=== PATIENT | male | born 1975 | race American Indian/Alaskan Native ===

== ENCOUNTER 2022-05-21 00:05 | Inpatient (IN) | payer MEDICAID ==
[2022-05-21 00:43] LABS: Basophils # (Auto) 0.1 K/mm3 (0.0-0.1); Eosinophils # (Auto) 0.3 K/mm3 (0.0-0.4); Hematocrit 37.1 % (35.5-45.6); Hemoglobin 12.4 gm/dl (11.8-15.2); Lymphocytes # (Auto) 2.5 K/mm3 (1.2-5.4); Lymphocytes % (Auto) 28.8 % (13.4-35.0); Mean Corpuscular HGB Conc 34 % (32-34); Mean Corpuscular Volume 72 fl (84-94); Monocytes % (Auto) 11.1 % (0.0-7.3); Platelet Count 212 K/mm3 (140-440); Red Blood Count 5.13 M/mm3 (3.65-5.03)
--- NOTE | 2022-05-21 00:50 | XRay Report ---
CHEST 2 VIEWS INDICATION: Chest Pain. COMPARISON: None. FINDINGS: Support devices: Chest port in satisfactory position. Heart: Within normal limits. Lungs/Pleura: No acute air space or interstitial disease. No significant pleural effusion. IMPRESSION: No acute findings. Signer Name: Wallace Gomez MD Signed: 05/21/2022 12:45 AM Workstation Name: [id number]
[2022-05-21 01:01] LABS: BUN/Creatinine Ratio 17; Blood Urea Nitrogen 22 mg/dL (9-20); Hemolysis Index 7
--- NOTE | 2022-05-21 07:18 | Emergency Department Report ---
HPI - General Chief Complaint: Chest Pain Time Seen by Provider: 05/21/22 07:03 - [facility] HPI: Room 5 Patient is a 46-year-old male present with chief complaint of chest pain. Patient states last night at 23: 00 he developed substernal chest pain described as a tightness that lasted approximate 10 minutes. The patient states by the time he left his house pain has subsided and has not returned. Patient states he had some shortness of breath with the pain but never had nausea/vomiting or diaphoresis. Patient denies pleurisy or cough. 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 Gout - Surgical History Past Surgical History?: Yes Additional Surgical History: LYMPH NODE REMOVAL - Family History Family history: no significant - Social History Smoking Status: Current Every Day Smoker (1/2 pack/day) Substance Use Type: None (Denies illicit drug use), Alcohol (Occasional) ED Review of Systems ROS: Stated complaint: CHEST PAIN Other details as noted in HPI Constitutional: denies: diaphoresis Eyes: denies: eye pain ENT: denies: throat pain Respiratory: shortness of breath Cardiovascular: chest pain Endocrine: no symptoms reported Gastrointestinal: denies: nausea, vomiting Genitourinary: denies: dysuria Musculoskeletal: denies: back pain Neurological: denies: headache Physical Exam - Physical Exam Vital Signs: Vital Signs 05/21/22 00:09 Temperature 98.3 F Pulse Rate 82 Respiratory 14 Rate Blood Pressure 179/114 Blood Pressure 179/114 [Right] O2 Sat by Pulse 95 Oximetry Physical Exam: GENERAL: The patient is well-developed well-nourished male lying on stretcher not appearing to be in acute distress. [] HEENT: Normocephalic. Atraumatic. Extraocular motions are intact. Patient has moist mucous membranes. NECK: Supple. Trachea midline CHEST/LUNGS: Clear to auscultation. There is no respiratory distress noted. HEART/CARDIOVASCULAR: Regular. There is no tachycardia. There is no gallop rub or murmur. ABDOMEN: Abdomen is soft, nontender. Patient has normal bowel sounds. There is no abdominal distention. SKIN: There is no rash. There is 1+ bilateral lower extremity pitting edema. There is no diaphoresis. NEURO: The patient is awake, alert, and oriented. The patient is cooperative. The patient has no focal neurologic deficits. The patient has normal speech. GCS 15 MUSCULOSKELETAL:There is no evidence of acute injury. ED Course Vital Signs 05/21/22 00:09 Temperature 98.3 F Pulse Rate 82 Respiratory 14 Rate Blood Pressure 179/114 Blood Pressure 179/114 [Right] O2 Sat by Pulse 95 Oximetry ED Medical Decision Making - Lab Data Result diagrams: 05/21/22 00:31 05/21/22 00:31 Laboratory Tests 05/21/22 05/21/22 05/21/22 00:31 00:31 07:18 WBC 8.7 RBC 5.13 H Hgb 12.4 Hct 37.1 MCV 72 L MCH 24 L MCHC 34 RDW 20.0 H Plt Count 212 Lymph % (Auto) 28.8 Emanuel % (Auto) 11.1 H Eos % (Auto) 4.0 Baso % (Auto) 1.0 Lymph # (Auto) 2.5 Emanuel # (Auto) 1.0 H Eos # (Auto) 0.3 Baso # (Auto) 0.1 Seg Neutrophils % 55.1 Seg Neutrophils # 4.8 PT INR D-Dimer 693.39 H Sodium 142 Potassium 3.8 Chloride 106.3 Carbon Dioxide 26 Anion Gap 14 BUN 22 H Creatinine 1.3 Estimated GFR 59 BUN/Creatinine Ratio 17 Glucose 103 H Calcium 9.0 Troponin T < 0.010 NT-Pro-B Natriuret Pep 05/21/22 05/21/22 05/21/22 07:18 07:18 13:16 WBC RBC Hgb Hct MCV MCH MCHC RDW Plt Count Lymph % (Auto) Emanuel % (Auto) Eos % (Auto) Baso % (Auto) Lymph # (Auto) Emanuel # (Auto) Eos # (Auto) Baso # (Auto) Seg Neutrophils % Seg Neutrophils # PT 14.6 INR 1.03 D-Dimer Sodium Potassium Chloride Carbon Dioxide Anion Gap BUN Creatinine Estimated GFR BUN/Creatinine Ratio Glucose Calcium Troponin T < 0.010 NT-Pro-B Natriuret Pep 2980 H - EKG Data -: EKG Interpreted by [place] EKG shows normal: sinus rhythm Rate: normal - EKG Data When compared to previous EKG there are: previous EKG unavailable Interpretation: nonspecific ST-T wave dennis (T wave inversions leads V2, V3) - Radiology Data Radiology results: report reviewed (Chest x-ray, CT chest), image reviewed (Chest x-ray, CT chest) interpreted by me: Chest x-ray-no definite focal infiltrates, no pneumothorax [address] [address] XRay Report Signed Patient: JAKI KIRBY MR#: [id number] 3 : 1975 Acct:[id number] Age/Sex: 46 / M ADM Date: 05/21/22 Loc: ED Attending Dr: Ordering Physician: JYOTI RAO MD Date of Service: 05/21/22 Procedure(s): XR chest routine 2V Accession Number(s): [id number] cc: JYOTI RAO MD Fluoro Time In Minutes: CHEST 2 VIEWS INDICATION: Chest Pain. COMPARISON: None. FINDINGS: Support devices: Chest port in satisfactory position. Heart: Within normal limits. Lungs/Pleura: No acute air space or interstitial disease. No significant pleural effusion. IMPRESSION: No acute findings. Signer Name: Wallace Gomez MD Signed: 05/21/2022 12:45 AM Workstation Name: [id number] Transcribed By: ES Dictated By: Wallace Gomez MD Electronically Authenticated By: Wallace Gomez MD Signed Date/Time: 05/21/2244 DD/ TD/TT: [address] [address] Cat Scan Report Signed Patient: JAKI KIRBY MR#: [id number] 3 : 1975 Acct:[id number] Age/Sex: 46 / M ADM Date: 05/21/22 Loc: ED Attending Dr: Ordering Physician: YANELI FAN MD Date of Service: 05/21/22 Procedure(s): CT angio chest Accession Number(s): [id number] cc: YANELI FAN MD CTA CHEST WITH CONTRAST INDICATION / CLINICAL INFORMATION: Chest pain, elevated D-dimer. TECHNIQUE: Axial CT images were obtained through the chest after injection of IV contrast. 3 plane MIP and/or 3D reconstructions were produced. All CT scans at this location are performed using CT dose reduction for ALARA by means of automated exposure control. COMPARISON: None available. FINDINGS: PULMONARY ARTERIES: There are filling defects within the segmental and subse gmental branches of the right lower lobe, as well as the subsegmental branches of the left lower lobe. Filling defects are also noted in the subsegmental branches of the right upper and middle lobes. Main pulmonary artery is dilated measuring 3.7 cm. THORACIC AORTA: No significant abnormality. HEART: No significant abnormality. CORONARY ARTERY CALCIFICATION: None. MEDIASTINUM / NAREN: No significant abnormality. PLEURA: No pleural effusion. No pneumothorax. LUNGS: No acute air space or interstitial disease. ADDITIONAL FINDINGS: None. UPPER ABDOMEN: Cholelithiasis. SKELETAL STRUCTURES: Scattered degeneration. IMPRESSION: 1. Multiple segmental and subsegmental pulmonary emboli. Main pulmonary artery is dilated measuring 3.7 cm. 2. Otherwise no acute findings. CRITICAL RESULT Time of Discovery (CORE LAYING MACHINE OPERATOR/CDT): 12:10 PM Time of Communication (CORE LAYING MACHINE OPERATOR/CDT): 12:15 PM Licensed Practitioner Receiving Report: Dr. Fan Read-Back Performed: Yes. Signer Name: Dexter Wise DO Signed: 05/21/2022 1:15 PM Workstation Name: [id number] Transcribed By: NS Dictated By: DEXTER WISE DO Electronically Authenticated By: DEXTER WISE DO Signed Date/Time: 05/21/22 1315 DD/ 1309 TD/TT: - Differential Diagnosis ACS, PE, pericarditis, GERD Critical care attestation.: If time is entered above; I have spent that time in minutes in the direct care of this critically ill patient, excluding procedure time. ED Disposition Clinical Impression: Acute chest pain, Pulmonary emboli Disposition: ADMITTED INPATIENT Is pt being admited?: Yes Does the pt Need Aspirin: No Condition: Fair Instructions: Chest Pain (ED) Referrals: CARBUCCIA,PERLA, MD [Primary Care Provider] - 3-5 Days Time of Disposition: 13:27 (Care transferred to hospitalist (Dr. Alicea)) Heart Score - HEART Score History: Moderately suspicious EKG: Non-specific Age: 45-65 Risk factors: > 3 risk factors or hx of atherosclerotic disease Troponin: < normal limit HEART Score: 5 - EKG Read Time Time EKG Completed: 00:23 EKG Read Time: 00:26
[2022-05-21] MEDS ORDERED: HEPARIN 10,000 UNITS/10 ML VIAL IV ONE (13:17)
--- NOTE | 2022-05-21 13:19 | Cat Scan Report ---
CTA CHEST WITH CONTRAST INDICATION / CLINICAL INFORMATION: Chest pain, elevated D-dimer. TECHNIQUE: Axial CT images were obtained through the chest after injection of IV contrast. 3 plane DE P and/or 3D reconstructions were produced. All CT scans at this location are performed using CT dose reduction for ALARA by means of automated exposure control. COMPARISON: None available. FINDINGS: PULMONARY ARTERIES: There are filling defects within the segmental and subsegmental branches of the r ight lower lobe, as well as the subsegmental branches of the left lower lobe. Filling defects are als o noted in the subsegmental branches of the right upper and middle lobes. Main pulmonary artery is di lated measuring 3.7 cm. THORACIC AORTA: No significant abnormality. HEART: No significant abnormality. CORONARY ARTERY CALCIFICATION: None. MEDIASTINUM / NAREN: No significant abnormality. PLEURA: No pleural effusion. No pneumothorax. LUNGS: No acute air space or interstitial disease. ADDITIONAL FINDINGS: None. UPPER ABDOMEN: Cholelithiasis. SKELETAL STRUCTURES: Scattered degeneration. IMPRESSION: 1. Multiple segmental and subsegmental pulmonary emboli. Main pulmonary artery is dilated measuring 3 .7 cm. 2. Otherwise no acute findings. CRITICAL RESULT Time of Discovery (WARP KNITTING MACHINE OPERATOR/CDT): 12:10 PM Time of Communication (WARP KNITTING MACHINE OPERATOR/CDT): 12:15 PM Licensed Practitioner Receiving Report: Dr. Heaton Read-Back Performed: Yes. Signer Name: Dexter Gil DO Signed: 05/21/2022 1:15 PM Workstation Name: [id number]
[2022-05-21 13:25] LABS: INR 1.03 (0.87-1.13)
[2022-05-21] MEDS ORDERED: HEPARIN 10,000 UNITS/10 ML VIAL IV PRN (14:00)
[2022-05-21] MEDS ORDERED: HEPARIN/ 0.45% NACL DRIP 25,000 UNIT/500 ML BAG IV SCH (14:00)
--- NOTE | 2022-05-21 17:53 | History and Physical Report ---
History of Present Illness Date of examination: 05/21/22 Date of admission: 05/21/2022 Chief complaint: Chest pain and shortness of breath since last night History of present illness: 46-year-old -Beninese male with history of hypertension and pulmonary embolism diagnosed in around normal October 2021 on Coumadin comes in for shortness of breath and intermittent chest pain. The most prominent symptom is shortness of breath on exertion. Patient was on Coumadin which he has not been taking recently because of follow-up with primary care and insurance issues. No fever or chills. Shortness of breath on exertion. Chest pain intermittently but faint chest pain. No relation to exertion. More on deep inspiration. No diaphoresis no vomiting. During my exam his blood pressure was 220/110. Also complains of left great toe pain. - Past Medical History --Previous Medical History?: Yes --Hypertension: Yes --Deep Vein Thrombosis: Yes --Hx of Cancer: Yes (Lymphoma s/p bone marrow transplant) --Additional medical history: Obstructive sleep apnea on CPAP. Gout - Surgical History --Past Surgical History?: Yes --Additional Surgical History: LYMPH NODE REMOVAL - Family History --Family history: no significant - Social History Smoking Status: Current Every Day Smoker (1/2 pack/day) Substance Use Type: None (Denies illicit drug use), Alcohol (Occasional) Review of Systems ROS: Stated complaint: CHEST PAIN Other details as noted in HPI Constitutional: denies: diaphoresis Eyes: denies: eye pain ENT: denies: throat pain Respiratory: shortness of breath Cardiovascular: chest pain Endocrine: no symptoms reported Gastrointestinal: denies: nausea, vomiting Genitourinary: denies: dysuria Musculoskeletal: Left great toe pain Neurological: denies: headache Medications and Allergies Allergies Allergy/AdvReac Type Severity Reaction Status Date / Time No Known Allergies Allergy Unverified 05/21/22 00:18 Active Meds: Active Medications Heparin Sodium (Porcine) (Heparin 10,000 Units/10 Ml Vial) 5,000 unit IV Q6H PRN PRN Reason: Anti-Xa Assay < 0.1 units/ml Heparin Sodium/Sodium Chloride (Heparin/ 0.45% Nacl-25,000 Unit/500 Ml) 25,000 unit in 500 mls @ 30 mls/hr IV TITR DANIELLA; Protocol Exam - Constitutional Vitals: Temp Pulse Resp BP Pulse Ox 98.3 F 67 14 184/104 98 05/21/22 00:09 05/21/22 10:32 05/21/22 10:32 05/21/22 10:32 05/21/22 10:32 General appearance: Present: no acute distress, well-nourished - EENT Eyes: Present: PERRL ENT: hearing intact, clear oral mucosa - Neck Neck: Present: supple, normal ROM - Respiratory Respiratory effort: normal Respiratory: bilateral: CTA - Cardiovascular Heart rate: 78 Rhythm: regular Heart Sounds: Present: S1 & S2. Absent: rub, click - Extremities Extremities: pulses symmetrical, No edema Peripheral Pulses: within normal limits - Abdominal General gastrointestinal: Present: soft, non-tender, non-distended, normal bowel sounds Male genitourinary: Present: normal - Integumentary Integumentary: Present: clear, warm, dry - Musculoskeletal Musculoskeletal: gait normal, strength equal bilaterally - Psychiatric Psychiatric: appropriate mood/affect, intact judgment & insight - Neurologic Neurologic: CNII-XII intact, moves all extremities HEART Score - HEART Score History: Slightly suspicious EKG: Non-specific Age: 45-65 Risk factors: 1-2 risk factors Troponin: Troponin T < 0.010 ng/mL (0.00-0.029) 05/21/22 07:18 Troponin: < normal limit HEART Score: 3 - Critical Actions Critical Actions: 4-6 pts:12-16.6% risk of adverse cardiac event. Should be admitted Results - Labs CBC & Chem 7: 05/21/22 00:31 05/21/22 00:31 Labs: Laboratory Last Values WBC 8.7 K/mm3 (4.5-11.0) 05/21/22 00:31 RBC 5.13 M/mm3 (3.65-5.03) H 05/21/22 00:31 Hgb 12.4 gm/dl (11.8-15.2) 05/21/22 00:31 Hct 37.1 % (35.5-45.6) 05/21/22 00:31 MCV 72 fl (84-94) L 05/21/22 00:31 MCH 24 pg (28-32) L 05/21/22 00:31 MCHC 34 % (32-34) 05/21/22 00:31 RDW 20.0 % (13.2-15.2) H 05/21/22 00:31 Plt Count 212 K/mm3 (140-440) 05/21/22 00:31 Lymph % (Auto) 28.8 % (13.4-35.0) 05/21/22 00:31 Rapides % (Auto) 11.1 % (0.0-7.3) H 05/21/22 00:31 Eos % (Auto) 4.0 % (0.0-4.3) 05/21/22 00:31 Baso % (Auto) 1.0 % (0.0-1.8) 05/21/22 00:31 Lymph # (Auto) 2.5 K/mm3 (1.2-5.4) 05/21/22 00:31 [place]ides # (Auto) 1.0 K/mm3 (0.0-0.8) H 05/21/22 00:31 Eos # (Auto) 0.3 K/mm3 (0.0-0.4) 05/21/22 00:31 Baso # (Auto) 0.1 K/mm3 (0.0-0.1) 05/21/22 00:31 Seg Neutrophils % 55.1 % (40.0-70.0) 05/21/22 00:31 Seg Neutrophils # 4.8 K/mm3 (1.8-7.7) 05/21/22 00:31 PT 14.6 Sec. (12.2-14.9) 05/21/22 13:16 INR 1.03 (0.87-1.13) 05/21/22 13:16 APTT 32.0 Sec. (24.2-36.6) 05/21/22 13:16 D-Dimer 693.39 ng/mlDDU (0-234) H 05/21/22 07:18 Sodium 142 mmol/L (137-145) 05/21/22 00:31 Potassium 3.8 mmol/L (3.6-5.0) 05/21/22 00:31 Chloride 106.3 mmol/L (98-107) 05/21/22 00:31 Carbon Dioxide 26 mmol/L (22-30) 05/21/22 00:31 Anion Gap 14 mmol/L 05/21/22 00:31 BUN 22 mg/dL (9-20) H 05/21/22 00:31 Creatinine 1.3 mg/dL (0.8-1.3) 05/21/22 00:31 Estimated GFR 59 ml/min 05/21/22 00:31 BUN/Creatinine Ratio 17 % 05/21/22 00:31 Glucose 103 mg/dL (75-100) H 05/21/22 00:31 Calcium 9.0 mg/dL (8.4-10.2) 05/21/22 00:31 Troponin T < 0.010 ng/mL (0.00-0.029) 05/21/22 07:18 NT-Pro-B Natriuret Pep 2980 pg/mL (0-450) H 05/21/22 07:18 Cardiac Enzymes 05/21/22 Range/Units 07:18 Troponin T < 0.010 (0.00-0.029) ng/mL - Imaging and Cardiology EKG: report reviewed Chest x-ray: report reviewed CT scan - chest: report reviewed Imaging and Cardiology: Chest x-ray No acute findings Chest CTA Multiple segmental and subsegmental pulmonary emboli Multiple main pulmonary artery is dilated measuring 3.7 cm otherwise no acute findings Assessment and Plan Advance Directives: Yes (Full code) VTE prophylaxis?: Chemical Plan of care discussed with patient/family: Yes - Patient Problems (1) Acute pulmonary embolism Current Visit: Yes Status: Acute Qualifiers: Acute cor pulmonale presence: without acute cor pulmonale Plan to address problem: Patient started on IV heparin Protein S protein C levels ordered Antithrombin ordered Vascular surgery consult requested for possible EKOS Patient does not have acute cor pulmonale May not need EKOS Changed to Eliquis tomorrow (2) Acute chest pain Current Visit: Yes Status: Acute Plan to address problem: Possibly secondary to pulmonary infarct Serial troponins Stress test was not requested at this point (3) Hypertensive emergency Current Visit: Yes Status: Acute Plan to address problem: Carvedilol 25 twice daily, amlodipine 10 mg daily and valsartan 160 mg p.o. every 12 added IV hydralazine 10 mg every 3 as needed (4) Acute gout Current Visit: Yes Status: Acute Plan to address problem: Patient used to be on allopurinol. Stopped allopurinol Patient started on colchicine, indomethacin prednisone and allopurinol (5) EVELIN on CPAP Current Visit: Yes Status: Acute Plan to address problem: Respiratory assessment and CPAP machine if necessary (6) DVT prophylaxis Current Visit: Yes Status: Acute Plan to address problem: On heparin and GI prophylaxis (7) Advance care planning Current Visit: Yes Status: Acute Plan to address problem: Disease education conducted care plan discussed diagnosis discussed, prognosis discussed. Patient is full code. Patient acknowledges understanding and agreement with care plan. +30 minutes.
[2022-05-21] MEDS ORDERED: ACETAMINOPHEN 325 MG TAB PO PRN (17:54)
[2022-05-21] MEDS ORDERED: MORPHINE 2 MG/1 ML INJ IV PRN (17:54)
[2022-05-21] MEDS ORDERED: oxyCODONE /ACETAMINOPHEN 5-325MG TAB PO PRN (17:54)
[2022-05-21] MEDS ORDERED: ONDANSETRON 4 MG/2 ML INJ IV PRN (17:54)
[2022-05-21] MEDS ORDERED: METOCLOPRAMIDE 10 MG/2 ML INJ IV PRN (17:54)
[2022-05-21] MEDS ORDERED: hydrALAZINE 20 MG/1 ML INJ ONE (18:50)
[2022-05-21] MEDS ORDERED: hydrALAZINE 20 MG/1 ML INJ IV SCH (19:00)
[2022-05-21] MEDS ORDERED: D5W/0.45% NACL 1,000 ML IV SCH (19:00)
[2022-05-21] MEDS: VALSARTAN 160MG TAB PO SCH (19:04)
[2022-05-21] MEDS: carvediloL 25 MG TAB PO SCH (19:05)
[2022-05-21] MEDS: hydrALAZINE 20 MG/1 ML INJ IV SCH (19:37)
[2022-05-21] MEDS: amLODIPine 10 MG TAB PO SCH (20:53)
[2022-05-21] MEDS ORDERED: HEPARIN 5,000 UNIT/1 ML VIAL SUB-Q SCH (22:00)
[2022-05-22] MEDS: carvediloL 25 MG TAB PO SCH ×3 (00:53→22:14)
[2022-05-22] MEDS: FAMOTIDINE 20 MG/2 ML INJ IV SCH ×2 (00:53→09:12)
[2022-05-22] MEDS: hydrALAZINE 20 MG/1 ML INJ IV SCH ×6 (00:53→14:03)
[2022-05-22 06:36] LABS: Basophils # (Auto) 0.1 K/mm3 (0.0-0.1); Basophils % (Auto) 0.9 % (0.0-1.8); Eosinophils # (Auto) 0.3 K/mm3 (0.0-0.4); Eosinophils % (Auto) 2.8 % (0.0-4.3); Hematocrit 35.7 % (35.5-45.6); Hemoglobin 11.8 gm/dl (11.8-15.2); Lymphocytes # (Auto) 1.8 K/mm3 (1.2-5.4); Lymphocytes % (Auto) 18.6 % (13.4-35.0); Mean Corpuscular HGB Conc 33 % (32-34); Mean Corpuscular Volume 72 fl (84-94); Monocytes % (Auto) 9.9 % (0.0-7.3); Platelet Count 218 K/mm3 (140-440); Red Blood Count 4.99 M/mm3 (3.65-5.03)
[2022-05-22 06:39] LABS: Red Cell Distribution Width 20.4 % (13.2-15.2)
[2022-05-22 06:57] LABS: Alanine Aminotransferase 13 units/L (7-56); Albumin 3.8 g/dL (3.9-5); BUN/Creatinine Ratio 15; Blood Urea Nitrogen 16 mg/dL (9-20); Calcium 8.6 mg/dL (8.4-10.2); Hemolysis Index 2
[2022-05-22] MEDS ORDERED: HEPARIN/ 0.45% NACL DRIP 25,000 UNIT/500 ML BAG IV SCH (08:00)
--- NOTE | 2022-05-22 08:27 | Electrocardiograph Report ---
[facility] Test Date: 2022-05-21 Test Time: 00:23:51 Pat Name: JAKI KIRBY Department: Room: A465 Gender: M Load Dispatcher Local: ZANE : 1975 Requested By: YANELI FAN Order Number: [id number] Reading MD: Mayo García Measurements Intervals [place] Rate: 80 P: -55 WA: 185 QRS: -63 QRSD: 138 T: 13 QT: 424 QTc: 490 Interpretive Statements Sinus or ectopic atrial rhythm Nonspecific IVCD with LAD Left ventricular hypertrophy poor r wave progression No previous ECG available for comparison Electronically Signed On 05-22-2022 8:27:14 EDT by Mayo García
[2022-05-22] MEDS: COLCHICINE 0.6 MG TAB PO SCH ×2 (09:11→21:47)
[2022-05-22] MEDS: VALSARTAN 160MG TAB PO SCH ×2 (09:12→22:14)
[2022-05-22] MEDS: allopurinoL 100 MG TAB PO SCH (09:12)
[2022-05-22] MEDS: predniSONE 20 MG TAB PO SCH (09:12)
[2022-05-22] MEDS: amLODIPine 10 MG TAB PO SCH (09:12)
[2022-05-22] MEDS ORDERED: ENOXAPARIN 150 MG/1 ML INJ SUB-Q SCH (10:00)
[2022-05-22] MEDS: ENOXAPARIN 80 MG/0.8 ML INJ SUB-Q SCH ×2 (10:54→21:48)
[2022-05-22] MEDS: ENOXAPARIN 100 MG/1 ML INJ SUB-Q SCH ×2 (10:54→21:48)
--- NOTE | 2022-05-22 14:47 | Consultation ---
History of Present Illness - Reason for Consult Consult date: 05/22/22 Pulmonary embolism Requesting physician: CAROL MUSTAFA - History of Present Illness 46-year-old -Swedish male with history of hypertension and pulmonary embolism diagnosed in around normal October 2021 on Coumadin comes in for shortness of breath and intermittent chest pain. The most prominent symptom is shortness of breath on exertion. Patient was on Coumadin which he has not been taking recently because of follow-up with primary care and insurance issues. No fever or chills. Shortness of breath on exertion. Chest pain intermittently but faint chest pain. No relation to exertion. More on deep inspiration. No diaphoresis no vomiting. During my exam his blood pressure was 220/110. Also complains of left great toe pain. Reviewed CT scan which demonstrated some acute on chronic pulmonary embolism. The right lower segmental pulmonary emboli have both been acute and chronic appearance, while the left lower lobar segmental pulmonary emboli have an acute and chronic appearance. No shortness of breath. Heart rate within normal limits. Troponin normal. BNP elevated. CT demonstrates enlarged main pulmonary artery at 3.[address] criteria for pulmonary hypertension. Patient has chronic obstructive sleep apnea on BiPAP. The patient was previously on warfarin. 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 He has palpable pedal pulses. Has had some intermittent traveling recently, especially during weekend. History of DVT from unclear cause. Past Medical History Hypertension: Yes Deep Vein Thrombosis: Yes Hx of Cancer: Yes (Lymphoma s/p bone marrow transplant) Additional medical history: Obstructive sleep apnea on CPAP. Gout Surgical History Additional Surgical History: LYMPH NODE REMOVAL Family History Family history: no significant Social History Smoking Status: Current Every Day Smoker (1/2 pack/day) Substance Use Type: None (Denies illicit drug use), Alcohol (Occasional) ROS: Stated complaint: CHEST PAIN Other details as noted in HPI Constitutional: denies: diaphoresis Eyes: denies: eye pain ENT: denies: throat pain Respiratory: shortness of breath Cardiovascular: chest pain Endocrine: no symptoms reported Gastrointestinal: denies: nausea, vomiting Genitourinary: denies: dysuria Musculoskeletal: Left great toe pain Neurological: denies: headache Medications and Allergies Allergies Allergy/AdvReac Type Severity Reaction Status Date / Time No Known Allergies Allergy Unverified 05/21/22 00:18 Active Meds: Active Medications Acetaminophen (Acetaminophen 325 Mg Tab) 650 mg PO Q4H PRN PRN Reason: Pain MILD(1-3)/Fever >100.5/GALVAN Allopurinol (Allopurinol 100 Mg Tab) 100 mg PO QDAY [facility] Last Admin: 05/22/22 09:12 Dose: 100 mg Amlodipine Besylate (Amlodipine 10 Mg Tab) 10 mg PO QDAY [facility] Last Admin: 05/22/22 09:12 Dose: 10 mg Carvedilol (Carvedilol 25 Mg Tab) 25 mg PO BID [facility] Last Admin: 05/22/22 09:11 Dose: 25 mg Colchicine (Colchicine 0.6 Mg Tab) 0.6 mg PO BID [facility] Last Admin: 05/22/22 09:11 Dose: 0.6 mg Enoxaparin Sodium (Enoxaparin 100 Mg/1 Ml Inj) 100 mg SUB-Q Q12HR [facility] Last Admin: 05/22/22 10:54 Dose: 100 mg Enoxaparin Sodium (Enoxaparin 80 Mg/0.8 Ml Inj) 70 mg SUB-Q Q12HR [facility] Last Admin: 05/22/22 10:54 Dose: 70 mg Famotidine (Famotidine 20 Mg Tab) 20 mg PO BID [facility] Hydralazine HCl (Hydralazine 20 Mg/1 Ml Inj) 10 mg IV Q3H [facility] Last Admin: 05/22/22 14:03 Dose: 10 mg Dextrose/Sodium Chloride (D5/0.45ns) 1,000 mls @ 75 mls/hr IV DIRECT [facility] Metoclopramide HCl (Metoclopramide 10 Mg/2 Ml Inj) 10 mg IV Q6H PRN PRN Reason: Nausea And Vomiting Morphine Sulfate (Morphine 2 Mg/1 Ml Inj) 2 mg IV Q4H PRN PRN Reason: Pain, Moderate (4-6) Last Admin: 05/22/22 02:30 Dose: 2 mg Ondansetron HCl (Ondansetron 4 Mg/2 Ml Inj) 4 mg IV Q8H PRN PRN Reason: Nausea And Vomiting Last Admin: 05/22/22 09:16 Dose: 4 mg Oxycodone/Acetaminophen (Oxycodone /Acetaminophen 5-325mg Tab) 1 tab PO Q6H PRN PRN Reason: Pain, Moderate (4-6) Last Admin: 05/22/22 08:09 Dose: 1 tab Prednisone (Prednisone 20 Mg Tab) 20 mg PO QDAY@0800 [facility] Last Admin: 05/22/22 09:12 Dose: 20 mg Sodium Chloride (Sodium Chloride 0.9% 10 Ml Flush Syringe) 10 ml IV BID [facility] Last Admin: 05/22/22 10:31 Dose: Not Given Sodium Chloride (Sodium Chloride 0.9% 10 Ml Flush Syringe) 10 ml IV PRN PRN PRN Reason: LINE FLUSH Valsartan (Valsartan 160mg Tab) 160 mg PO Q12HR [facility] Last Admin: 05/22/22 09:12 Dose: 160 mg Exam - Constitutional Vitals: Temp Pulse Resp BP Pulse Ox 97.5 F L 72 16 146/86 96 05/22/22 07:53 05/22/22 08:55 05/22/22 08:27 05/22/22 07:53 05/22/22 08:51 General appearance: Present: no acute distress - EENT Eyes: Present: EOM intact ENT: hearing intact - Neck Neck: Present: supple - Respiratory Respiratory effort: normal - Cardiovascular Rhythm: regular - Extremities Extremities: pulses intact (Palpable pedal pulses), normal temperature, normal color Extremity abnormal: edema (Left lower extremity 2+ edema) Peripheral Pulses: within normal limits - Abdominal General gastrointestinal: Present: other (Obese) - Psychiatric Psychiatric: appropriate mood/affect, cooperative Results - Labs CBC & Chem 7: 05/22/22 04:40 05/22/22 04:40 Labs: Abnormal lab results 05/22/22 05/22/22 05/22/22 Range/Units 00:21 04:40 04:40 MCV 72 L (84-94) fl MCH 24 L (28-32) pg RDW 20.4 H (13.2-15.2) % [place] % (Auto) 9.9 H (0.0-7.3) % [place] # (Auto) 1.0 H (0.0-0.8) K/mm3 Heparin Anti-Xa Level < 0.10 L (0.3-0.7) U.I./ml Potassium 3.5 L (3.6-5.0) mmol/L Carbon Dioxide 21 L (22-30) mmol/L Glucose 102 H (75-100) mg/dL Albumin 3.8 L (3.9-5) g/dL 05/22/22 Range/Units 08:34 MCV (84-94) fl MCH (28-32) pg RDW (13.2-15.2) % [place] % (Auto) (0.0-7.3) % [place] # (Auto) (0.0-0.8) K/mm3 Heparin Anti-Xa Level 0.10 L (0.3-0.7) U.I./ml Potassium (3.6-5.0) mmol/L Carbon Dioxide (22-30) mmol/L Glucose (75-100) mg/dL Albumin (3.9-5) g/dL Assessment and Plan 46-year-old male who presents with pulmonary embolism with history of pulmonary embolism in October 2021. The appearance has both an acute and chronic appearance. The patient was on anticoagulation for a year before being unable to get a PCP for continued warfarin in [place]. The patient has no shortness of breath, has a regular rate, and negative troponin. BNP is elevated, but I suspect this is due to chronic issues as the patient has CT criteria for pulmonary hypertension with enlarged main pulmonary artery. Risk ratification of pulmonary embolism is low. Recommend anticoagulation. Given 2 episodes of thromboembolic event, patient will need to be on some form of anticoagulation for life. Recommend full dose Eliquis or Xarelto. Can consider reducing anticoagulation dosing after 3 to 6 months. Given his history of lymphoma, will need to be evaluated by heme-onc as outpatient. Ordered venous ultrasounds of the lower extremities to obtain baseline status for DVTs. Patient has chronic left lower extremity lymphedema from lymph node resection. He also has venous insufficiency with heaviness and tightness of the calf. Ordered REDDY hose. Proper use discussed. Main pulmonary artery is enlarged compatible with pulmonary hypertension. This may be due to pulmonary emboli versus obstructive sleep apnea or other etiology. Should be followed by pulmonology or cardiology for further management. - Patient Problems (1) Acute pulmonary embolism Current Visit: Yes Status: Acute Qualifiers: Acute cor pulmonale presence: without acute cor pulmonale (2) EVELIN on CPAP Current Visit: Yes Status: Acute
--- NOTE | 2022-05-22 17:04 | Vascular Lab Report ---
DUPLEX DOPPLER LOWER EXTREMITY VEINS, BILATERAL INDICATION / CLINICAL INFORMATION: Bilateral lower extremity edema, known pulmonary embolism. TECHNIQUE: Duplex doppler imaging was performed through the veins of both lower extremities using juan ous compression and other maneuvers. COMPARISON: None available. FINDINGS: RIGHT COMMON FEMORAL VEIN: Negative. RIGHT FEMORAL VEIN: Negative. RIGHT POPLITEAL VEIN: Negative. RIGHT CALF VEINS: Negative. LEFT COMMON FEMORAL VEIN: Negative. LEFT FEMORAL VEIN: Negative. LEFT POPLITEAL VEIN: Negative. LEFT CALF VEINS: Negative. ADDITIONAL FINDINGS: None. IMPRESSION: 1. No sonographic evidence for DVT in either lower extremity. Signer Name: Denzel Jiménez MD Signed: 05/22/2022 4:59 PM Workstation Name: [id number]
--- NOTE | 2022-05-22 20:54 | Progress Note ---
Assessment and Plan - Patient Problems (1) Acute pulmonary embolism Current Visit: Yes Status: Acute Qualifiers: Acute cor pulmonale presence: without acute cor pulmonale Plan to address problem: Patient started on IV heparin Protein S protein C levels ordered Antithrombin ordered Vascular surgery consult requested for possible EKOS Patient does not have acute cor pulmonale May not need EKOS Changed to Eliquis tomorrow (2) Acute chest pain Current Visit: Yes Status: Acute Plan to address problem: Possibly secondary to pulmonary infarct Serial troponins Stress test was not requested at this point (3) Hypertensive emergency Current Visit: Yes Status: Acute Plan to address problem: Carvedilol 25 twice daily, amlodipine 10 mg daily and valsartan 160 mg p.o. every 12 added IV hydralazine 10 mg every 3 as needed (4) Acute gout Current Visit: Yes Status: Acute Plan to address problem: Patient used to be on allopurinol. Stopped allopurinol Patient started on colchicine, indomethacin prednisone and allopurinol (5) EVELIN on CPAP Current Visit: Yes Status: Acute Plan to address problem: Respiratory assessment and CPAP machine if necessary (6) DVT prophylaxis Current Visit: Yes Status: Acute Plan to address problem: On heparin and GI prophylaxis (7) Advance care planning Current Visit: Yes Status: Acute Plan to address problem: Disease education conducted care plan discussed diagnosis discussed, prognosis discussed. Patient is full code. Patient acknowledges understanding and agreement with care plan. +30 minutes. Subjective Date of service: 05/22/22 Objective - Constitutional Vitals: Vital Signs - 12hr 05/22/22 05/22/22 08:55 19:10 Temperature 98.1 F Pulse Rate 72 85 Respiratory 16 Rate Blood Pressure 124/65 O2 Sat by Pulse 91 Oximetry General appearance: Present: no acute distress, well-nourished - EENT Eyes: PERRL, EOM intact ENT: hearing intact, clear oral mucosa Ears: bilateral: normal - Neck Neck: supple, normal ROM - Respiratory Respiratory effort: normal Respiratory: bilateral: CTA - Breasts Breasts: normal - Cardiovascular Heart rate: 76 Rhythm: regular Heart Sounds: Present: S1 & S2. Absent: gallop, rub Extremities: pulses intact, No edema, normal color, Full ROM - Gastrointestinal General gastrointestinal: Present: soft, non-tender, non-distended, normal bowel sounds - Genitourinary Male genitourinary: normal - Integumentary Integumentary: clear, warm, dry - Musculoskeletal Musculoskeletal: 1, strength equal bilaterally - Neurologic Neurologic: moves all extremities - Psychiatric Psychiatric: memory intact, appropriate mood/affect, intact judgment & insight - Labs CBC & Chem 7: 05/22/22 04:40 05/22/22 04:40 Labs: Abnormal lab results 05/22/22 05/22/22 05/22/22 Range/Units 00:21 04:40 04:40 MCV 72 L (84-94) fl MCH 24 L (28-32) pg RDW 20.4 H (13.2-15.2) % [place] % (Auto) 9.9 H (0.0-7.3) % [place] # (Auto) 1.0 H (0.0-0.8) K/mm3 Heparin Anti-Xa Level < 0.10 L (0.3-0.7) U.I./ml Potassium 3.5 L (3.6-5.0) mmol/L Carbon Dioxide 21 L (22-30) mmol/L Glucose 102 H (75-100) mg/dL Albumin 3.8 L (3.9-5) g/dL 05/22/22 Range/Units 08:34 MCV (84-94) fl MCH (28-32) pg RDW (13.2-15.2) % [place] % (Auto) (0.0-7.3) % [place] # (Auto) (0.0-0.8) K/mm3 Heparin Anti-Xa Level 0.10 L (0.3-0.7) U.I./ml Potassium (3.6-5.0) mmol/L Carbon Dioxide (22-30) mmol/L Glucose (75-100) mg/dL Albumin (3.9-5) g/dL HEART Score - HEART Score EKG: Non-specific Age: 45-65 Risk factors: 1-2 risk factors Troponin: Troponin T < 0.010 ng/mL (0.00-0.029) 05/22/22 06:30 Troponin: < normal limit - Critical Actions Critical Actions: 4-6 pts:12-16.6% risk of adverse cardiac event. Should be admitted
[2022-05-22] MEDS: FAMOTIDINE 20 MG TAB PO SCH (21:49)
[2022-05-22] MEDS ORDERED: ALUM-MAG HYDROXIDE-SIMETHICONE 200-200-20MG/5ML ORAL LIQD 30 ML PO PRN (22:01)
[2022-05-23 05:07] LABS: Hematocrit 34.5 % (35.5-45.6); Hemoglobin 11.3 gm/dl (11.8-15.2)
[2022-05-23] MEDS: FAMOTIDINE 20 MG TAB PO SCH (10:24)
[2022-05-23] MEDS: ENOXAPARIN 100 MG/1 ML INJ SUB-Q SCH (10:25)
[2022-05-23] MEDS: ENOXAPARIN 80 MG/0.8 ML INJ SUB-Q SCH (10:25)
[2022-05-23] MEDS: carvediloL 25 MG TAB PO SCH (10:26)
[2022-05-23] MEDS: predniSONE 20 MG TAB PO SCH (10:26)
[2022-05-23] MEDS: COLCHICINE 0.6 MG TAB PO SCH (12:25)
[2022-05-23 16:33] VITALS: BP 146/95
[2022-05-23] MEDS: allopurinoL 100 MG TAB PO SCH (17:20)
[2022-05-23] MEDS: VALSARTAN 160MG TAB PO SCH (17:20)
[2022-05-23] MEDS: amLODIPine 10 MG TAB PO SCH (17:21)
--- NOTE | 2022-05-23 18:44 | Discharge Summary ---
Providers - Providers Date of Admission: 05/21/22 17:54 Date of discharge: 05/23/22 Attending physician: CAROL MUSTAFA 05/21/22 17:54 Consult to Physician [CONS] Routine Comment: Consulting Provider: DEYANIRA MUNGUIA Physician Instructions: Reason For Exam: Acute PE Primary care physician: PERLA ISSA Hospitalization Condition: Fair Disposition: 01 HOME / SELF CARE / HOMELESS - Discharge Diagnoses (1) Acute pulmonary embolism Status: Acute Qualifiers: Acute cor pulmonale presence: without acute cor pulmonale (2) Acute chest pain Status: Acute (3) Hypertensive emergency Status: Acute (4) Acute gout Status: Acute (5) EVELIN on CPAP Status: Acute (6) DVT prophylaxis Status: Acute (7) Advance care planning Status: Acute Core Measure Documentation - Palliative Care Palliative Care/ Comfort Measures: Not Applicable - Core Measures Any of the following diagnoses?: none Exam - Constitutional Vitals: Temp Pulse Resp BP Pulse Ox 98.5 F 70 20 146/95 98 05/23/22 15:29 05/23/22 17:21 05/23/22 15:29 05/23/22 17:21 05/23/22 15:29 General appearance: Present: no acute distress, well-nourished - EENT Eyes: Present: PERRL ENT: hearing intact, clear oral mucosa - Neck Neck: Present: supple, normal ROM - Respiratory Respiratory effort: normal Respiratory: bilateral: CTA - Cardiovascular Heart rate: 76 Rhythm: regular Heart Sounds: Present: S1 & S2. Absent: rub, click - Extremities Extremities: pulses symmetrical, No edema Peripheral Pulses: within normal limits - Abdominal General gastrointestinal: Present: soft, non-tender, non-distended, normal bowel sounds Male genitourinary: Present: normal - Integumentary Integumentary: Present: clear, warm, dry - Musculoskeletal Musculoskeletal: gait normal, strength equal bilaterally - Psychiatric Psychiatric: appropriate mood/affect, intact judgment & insight - Neurologic Neurologic: CNII-XII intact, moves all extremities Plan Activity: no restrictions Diet: low fat, low cholesterol, low salt Follow up with: PERLA ISSA MD [Primary Care Provider] - 3-5 Days
== END 2022-05-23 19:50 | disposition home or self-care (01) | DRG 176 ==
LOC: ED 00:05 → 4A 17:54
PROVIDERS: ADMIT Internal Medicine; ATTEND Internal Medicine
PROC: 5A09357 Assistance with Respiratory Ventilation, Less than 24 Consecutive Hours, Continuous Positive Airway Pressure (ICD-10-PCS; principal; 2022-05-22)
PROC: 5A09357 Assistance with Respiratory Ventilation, Less than 24 Consecutive Hours, Continuous Positive Airway Pressure (ICD-10-PCS; 2022-05-23)
DX: I26.99 Other pulmonary embolism without acute cor pulmonale (principal); I16.1 Hypertensive emergency; M10.9 Gout, unspecified; G47.33 Obstructive sleep apnea (adult) (pediatric); F17.200 Nicotine dependence, unspecified, uncomplicated; Z94.81 Bone marrow transplant status; I10 Essential (primary) hypertension
CPT/HCPCS: 36415; 71046; 71275; 80048; 80053; 83880; 84484; 85014; 85018; 85025; 85379; 85520; 85610; 85730; 93005; 93970; 94660; 94760; G0378; J3490; J0360; J1644; J1650; J2270; J2405; J2765; Q9967